=== PATIENT | female | born 1940 | race Caucasian/White ===

== ENCOUNTER 2017-06-14 11:31 | Outpatient (CLI) | payer OTHER ==
[~2017-06-14] VITALS: Ht 152.4 cm; Wt 63.5 kg
[~2017-06-14 11:31] MED LIST: CRESTOR5 MG; GILTUSS TR TAB1 EACH PO; LEXAPRO20 MG; LIPITOR20 MG; PEPCID20 MG; PREDNISOLONE5 MG; PROTONIX40 M1; TOPROL XL25 M1; ZITHROMAX500 MG PO; ZYRTEC10 MG PO
== END 2017-06-14 11:51 | disposition home or self-care (01) ==
LOC: PPHC 11:31
DX: B34.9 Viral infection, unspecified (principal)

== ENCOUNTER 2017-06-14 11:52 | Outpatient (CLI) | payer OTHER | END 2017-06-14 12:03 | disposition home or self-care (01) | LOC: LAB 11:52 | DX: R50.9 Fever, unspecified (principal) ==

== ENCOUNTER 2019-05-01 09:53 | Outpatient (CLI) | payer OTHER | END 2019-05-01 11:59 | disposition home or self-care (01) | LOC: LAB 09:53 | DX: J11.1 Influenza due to unidentified influenza virus with other respiratory manifestations (principal) ==

== ENCOUNTER 2020-06-01 16:10 | Outpatient (CLI) | payer OTHER | END 2020-06-01 18:00 | disposition home or self-care (01) | LOC: LAB 16:10 | PROVIDERS: ATTEND General Practice | DX: Z20.828 Contact with and (suspected) exposure to other viral communicable diseases (principal) ==

== ENCOUNTER 2020-06-28 16:28 | Outpatient (CLI) | payer OTHER | END 2020-06-28 16:34 | disposition home or self-care (01) | LOC: LAB 16:28 | DX: U07.1 COVID-19 (principal) ==

== ENCOUNTER 2021-03-01 14:15 | Outpatient (CLI) | payer OTHER | END 2021-03-01 14:16 | disposition home or self-care (01) | LOC: NUCLEAR 14:15 | PROVIDERS: ATTEND Physical Medicine & Rehabilitation | DX: M81.0 Age-related osteoporosis without current pathological fracture (principal) ==

== ENCOUNTER 2021-05-25 11:06 | Outpatient (CLI) | payer OTHER | END 2021-05-25 11:16 | disposition home or self-care (01) | LOC: TOM 11:06 | PROVIDERS: ATTEND Internal Medicine Cardiovascular Disease | DX: I10 Essential (primary) hypertension (principal) ==

== ENCOUNTER 2021-09-30 09:48 | Inpatient (IN) | payer OTHER ==
[~2021-09-30] VITALS: Ht 170.2 cm; Wt 68.0 kg
[2021-09-30] MEDS ORDERED: TARGADOX50 MG (10:18)
[2021-09-30] MEDS ORDERED: BUSPIRONE HCL7.5 MG (10:18)
[2021-09-30] MEDS ORDERED: INTEGRA CAPSUL1 EACH PO (10:18)
[2021-09-30] MEDS ORDERED: NAMENDA5 MG (10:19)
[2021-09-30] MEDS ORDERED: PREDNISONE2.5 MG (10:19)
[2021-09-30] MEDS ORDERED: PROMACTA12.5 MG (10:19)
[2021-10-10] MEDS ORDERED: NAPR500T14 PO (13:32)
[2021-10-10] MEDS ORDERED: duricef PO (13:32)
== END 2021-10-10 15:09 | disposition home or self-care (01) | DRG 746 ==
LOC: ER 09:48 → OB/GYN 16:08
PROVIDERS: Obstetrics & Gynecology; ADMIT Student in an Organized Health Care Education/Training Program; ATTEND Student in an Organized Health Care Education/Training Program
PROC: BW21Y0Z Computerized Tomography (CT Scan) of Abdomen and Pelvis using Other Contrast, Unenhanced and Enhanced (ICD-10-PCS; 2021-09-30)
PROC: 30233R1 Transfusion of Nonautologous Platelets into Peripheral Vein, Percutaneous Approach (ICD-10-PCS; 2021-10-03)
PROC: 30233N1 Transfusion of Nonautologous Red Blood Cells into Peripheral Vein, Percutaneous Approach (ICD-10-PCS; 2021-10-04)
PROC: 0U9M0ZZ Drainage of Vulva, Open Approach (ICD-10-PCS; principal; 2021-10-05 16:00)
DX: N76.4 Abscess of vulva (principal); D69.3 Immune thrombocytopenic purpura; B96.29 Other Escherichia coli [E. coli] as the cause of diseases classified elsewhere; B95.1 Streptococcus, group B, as the cause of diseases classified elsewhere; B96.1 Klebsiella pneumoniae [K. pneumoniae] as the cause of diseases classified elsewhere; B95.61 Methicillin susceptible Staphylococcus aureus infection as the cause of diseases classified elsewhere; D53.8 Other specified nutritional anemias; G30.0 Alzheimer's disease with early onset; F02.80 Dementia in other diseases classified elsewhere, unspecified severity, without behavioral disturbance, psychotic disturbance, mood disturbance, and anxiety

== ENCOUNTER 2022-01-31 11:07 | Outpatient (CLI) | payer OTHER ==
[~2022-01-31 11:07] MED LIST changes: +BUSPIRONE HCL7.5 MG; +INTEGRA CAPSUL1 EACH PO; +NAMENDA5 MG; +NAPR500T14 PO; +PREDNISONE2.5 MG; +PROMACTA12.5 MG; +TARGADOX50 MG; +duricef PO
== END 2022-01-31 15:05 | disposition home or self-care (01) ==
LOC: LAB 11:07
PROVIDERS: ATTEND Ophthalmology
DX: Z01.810 Encounter for preprocedural cardiovascular examination (principal)

== ENCOUNTER 2022-02-02 15:09 | Emergency (ER) | payer OTHER ==
[~2022-02-02] VITALS: Ht 172.7 cm; Wt 61.7 kg
[2022-02-03] MEDS ORDERED: DUI500 PO (03:04)
== END 2022-02-03 03:17 | disposition home or self-care (01) ==
LOC: ER 15:09
DX: L03.113 Cellulitis of right upper limb (principal); I10 Essential (primary) hypertension; Z88.0 Allergy status to penicillin